=== PATIENT | female | born 1985 | race Native Hawaiian/Other Pacific Islander ===

== ENCOUNTER 2020-07-08 15:08 | Outpatient (CLI) | payer BC | END 2020-07-08 23:40 | disposition home or self-care (01) | LOC: RAD 15:08 | DX: I10 Essential (primary) hypertension (principal); F41.9 Anxiety disorder, unspecified; E28.2 Polycystic ovarian syndrome; M54.5 Low back pain; M54.30 Sciatica, unspecified side ==